=== PATIENT | female | born 1975 | race African-American/Black ===

== ENCOUNTER 2016-05-30 09:51 | Observation (INO) ==
[2016-05-30] MEDS ORDERED: SODIUM CHLORIDE 0.9% 1,000 ML IV STA (11:10)
[2016-05-30] MEDS ORDERED: ONDANSETRON 4 MG/2 ML VIAL IV STA (11:10)
--- NOTE | 2016-05-30 11:14 | EKG Report ---
Stationary ECG Study [facility] ER Test Date: 05/30/2016 10:09:04 AM Pat Name: ELSA PARRY Department: Room: Gender: F Rotary Helper: Walt Conley : 1975 Requested by: Nash Hoover Order Number: [id number] Reading MD: MANNY BARRERA Intervals [place] Rate: 86 P: 999 DE: 0 QRS: 65 QRSD: 86 T: 5 QT: 435 QTc: 478 Interpretive Statements ATRIAL FIBRILLATION NONSPECIFIC T WAVE ABNORMALITY, PROBABLY DIGITALIS EFFECT LONG QT INTERVAL Electronically Signed On 05-31-16 21:53:39 ADMINISTRATION DEAN by MANNY BARRERA [email or web address]
--- NOTE | 2016-05-30 11:33 | XRay Report ---
Exam: XR chest 1V portable Date: 05/30/2016 11:11 AM Indication: Chest pain Comparison: 12/08/2015 Technical:AP portable Findings: Mild cardiac enlargement is present. No obvious infiltrate or effusion. Mediastinal and bony structures are otherwise intact. External cardiac leads are present. Impression: 1. Borderline cardiac enlargement without decompensation PROCEDURE INTERPRETED AT [facility] DEPARTMENT OF RADIOLOGY Final Report Signed by: Dr. Valentin Murray
[2016-05-30] MEDS ORDERED: ONDANSETRON 4 MG/2 ML VIAL ONE (11:42)
[2016-05-30 11:44] LABS: Basophils # 0.1 10*3/uL (0.0-0.2); Basophils % 1.1 % (0.0-0.8); Eosinophils % 0.1 % (0.00-10.9); Hematocrit 39.8 VOL% (35.7-47.0); Hemoglobin 13.7 GM/DL (12.0-16.0); Immature Granulocytes % 0.1 %; Immature Granulocytes Absolute 0.01 #; Lymphocytes # 2.1 10*3/uL (1.4-4.0); Lymphocytes % 22.6 % (21.3-54.2); Mean Corpuscular HGB Conc 34.4 GM/DL (32-36); Mean Corpuscular Hemoglobin 32 PG (27-34); Mean Corpuscular Volume 92.1 FL (87-102); Monocytes # 0.8 10*3/uL (0.11-0.8); Monocytes % 8.5 % (1.7-12.7); Neutrophils # 6.3 10*3/uL (1.4-7.4); Neutrophils % 67.6 % (38.7-73.9); Platelet Count 258 10*3/uL (130-400); Red Blood Count 4.32 10*6/uL (3.8-5.5); Red Cell Distribution Width 12.7 % (9.3-17.3); White Blood Count 9.3 10*3/uL (4.5-13.71)
[2016-05-30 11:50] LABS: Apearance,Urine CLEAR (Clear); Bilirubin,Urine Negative (Negative); Blood, Urine Moderate mg/dL (Negative); Glucose,Urine (UA) Negative (Negative); Ketones,Urine 20 mg/dL (Negative); Mucus,Urine Occasional /LPF (Occasional); Nitrite,Urine Negative (Negative); Protein,Urine 30 MG/DL; RBC,Urine 1 /HPF (0-4); Squamous Epithelial Cell,Urine Occasional /HPF (0-10); Urine Color Straw (Yellow); Urine Specific Gravity 1.004 (1.001-1.035); Urine Urobilinogen < 2.0 EU/DL (0.2-1.0); WBC,Urine <1 /HPF (0-6)
[2016-05-30 11:57] LABS: Barbiturates Screen,Urine Negative (Negative); Benzodiazepines Screen,Urine Negative (Negative); Cannabinoid Screen,Urine Positive (Negative); Opiate Screen,Urine Negative (Negative); Phencyclidine Screen,Urine Negative (Negative)
[2016-05-30 12:16] LABS: Albumin 4.2 G/DL (3.4-5.0); Bilirubin,Total 0.9 MG/DL (0.2-1.0); Osmolality,Calculated 273.5 MOS/KG (273-304); Potassium 3.8 MMOL/L (3.5-5.1); Total Protein 8.5 G/DL (6.4-8.3)
--- NOTE | 2016-05-30 13:54 | Emergency Department Note ---
Feng Delacruz Brittany, am scribing for, and in the presence of, Nash Hoover Jr., MD 11:14. Sneha Delacruz Marvin Jr., MD, personally performed the services described in this documentation, ascribed by Nnacy Toney in my presence, and it is both accurate and complete [id number] . Arrival - Arrival Chief Complaint: Non-Specific Stated Complaint: CHEST PAIN ED Nursing Triage Note: C/O HAVING CHEST PAIN X 2 HOURS., + SOB, EKG DONE IN TRIAGE- AFTER GETTING EKG DONE PATIENT THEN COMPLAINS OF + SORE THROAT., + TIGHTNESS IN CHEST, + CHILLS, POOR HISTORIAN , + COUGHING, Mode of Arrival: Wheelchair Limitations: No Limitations Source: Patient, RN Notes Reviewed - History of Present Illness HPI Narrative: Patient is a 41 y/o black female presenting to the ED with c/o chest pain that onset this morning. Patient describes chest pain as "feels like something sharp coming and going lasting only a few seconds at a time." Patient reports that nothing makes pain better or worse. Patient notes that she has also been having a sore throat and headache. Patient reports that she's had some nausea and vomited about 3 times this morning. Patient describes vomit as clear and yellow in color. Patient notes that she has been taking Clonidine as prescribed for blood pressure. Patient is a current everyday smoker, but denies use of alcohol or recreational drugs. No other complaint/pain in the ED. Date of Last Menstrual Period: 1 WEEK AGO Allergies/Adverse Reactions: Allergies Allergy/AdvReac Type Severity Reaction Status Date / Time No Known Allergies Allergy Verified 05/30/16 10:12 Home Medications: Home Medications Medication Instructions Recorded Confirmed Type Cetirizine Tab [ZyrTEC TAB] 10 mg PO DAILY 09/10/14 05/30/16 History Alprazolam [Xanax] 1 mg PO PRN PRN #20 tablet 09/09/15 05/30/16 Rx Lisinopril/Hydrochlorothiazide 1 each PO DAILY #30 tablet 09/09/15 05/30/16 Rx [Lisinopril-Hctz 20-25 mg Tab] Potassium Chloride 20 meq PO DAILY #30 tablet.er 09/09/15 05/30/16 Rx amLODIPine [Norvasc] 10 mg PO DAILY #30 tablet 09/09/15 05/30/16 Rx cloNIDine TAB [Catapres Tab] 0.2 mg PO BID #60 tablet 09/09/15 05/30/16 Rx Diclofenac Potassium Tab [Cataflam] 50 mg PO BID #10 tablet 12/08/15 05/30/16 Rx Review of System - Review of System 12 point system: reviewed and no additional remarkable complaints except as stated - Review of System Constitutional: Absent: fever Head/Ears/Nose/Throat: Present: sore throat Cardiovascular: Present: chest pain Gastrointestinal: Present: nausea, vomiting Neurological: Present: headache Medical,Surgical,& Family Hx - Medical History Cardio: History of: Hypertension Psychological: History of: Anxiety Disorders - Surgical History Reproductive Surgeries: Surgical HX of;: Section, Tubal Ligation - Social History Smoking Status: Smoker, status unknown Frequency of Alcohol Use: Occasionally Type of Drug Use: Marijuana Exam Physical Examination: General: Well-developed well-nourished, no apparent distress. Head: Normocephalic, atraumatic. Eyes: PERRLA, EOMI. Nose: No obvious acute deformities or discharge. Mouth: No obvious acute injury. Mucous membranes are a little dry, no intraoral swelling is noticed Neck: Full range of motion without obvious pain. No midline tender to palpation. Lymphatic: no significant lymphadenopathy noted. Lungs: Clear to auscultation bilaterally, normal and equal air movement bilaterally, no obvious rales or wheezing. Heart: regular rate and rhythm, no obvious mummers. Chest wall, palpation reproduces her pain, no crepitance or lesions noted Abdomen: Soft nontender, nondistended, normal active bowel sounds. Skin: No obivous acute lesions noted Musculoskeletal: No gross deformities. Neurological: No focal findings, cranial nerves II through XII grossly normal. Psychiatric: Appropriate mood.. : Deferred Vital Signs: Vital Signs Temperature 98.4 F 05/30/16 10:03 Pulse Rate 71 05/30/16 11:07 Respiratory Rate 20 05/30/16 10:03 Blood Pressure 152/107 05/30/16 11:07 O2 Sat by Pulse Oximetry 100 05/30/16 11:07 Course Course Narrative: Differential diagnosis: Upper respiratory infection pharyngitis, chest wall pain , bronchitis - Reevaluation(s) Reevaluation #1: Discussed with the nurse practitioner from the hospitalist service and they accept patient and will come to the ER and write the orders. Time: 13:52 Results - Labs CBC & BMP: 05/30/16 11:14 05/30/16 11:14 Lab Results: I have reviewed the patients labs Labs: Laboratory Tests 05/30/16 05/30/16 05/30/16 11:14 11:14 11:14 WBC 9.3 RBC 4.32 Hgb 13.7 Hct 39.8 MCV 92.1 MCH 32 MCHC 34.4 RDW 12.7 Plt Count 258 MPV 10.0 Neut % (Auto) 67.6 Lymph % (Auto) 22.6 Eddy % (Auto) 8.5 Eos % (Auto) 0.1 Baso % (Auto) 1.1 H Neut # (Auto) 6.3 Lymph # (Auto) 2.1 Eddy # (Auto) 0.8 Eos # (Auto) 0.0 Baso # (Auto) 0.1 Immature Gran % 0.1 Nucleated RBC % 0.0 Immature Gran # 0.01 Nucleated RBCs # 0.00 Urine Color Straw Urine Appearance Clear Urine pH 7.0 Ur Specific [place] 1.004 Urine Protein 30 Urine Glucose (UA) Negative Urine Ketones 20 Urine Blood Moderate Urine Nitrate Negative Urine Bilirubin Negative Urine Urobilinogen < 2.0 H Urine Leukocytes Negative Urine RBC 1 Urine WBC <1 Ur Squamous Epith Cells Occasional Urine Mucus Occasional Urine Test Negative Urine Opiates Screen Negative Ur Barbiturates Screen Negative Ur Phencyclidine Scrn Negative U Amphetamine/Methamph Negative U Benzodiazepines Scrn Negative U Cocaine Metab Screen Negative U Cannabinoids Screen Positive H Laboratory Tests 05/30/16 05/30/16 11:14 11:14 Sodium 139 Potassium 3.8 Chloride 103 Carbon Dioxide 23 Anion Gap 16.8 H BUN 7 Creatinine 0.50 L GFR Calculation 0 BUN/Creatinine Ratio 14.00 Glucose 80 Calculated Osmolality 273.5 Calcium 9.0 Total Bilirubin 0.90 AST 176 H ALT 73 H Alkaline Phosphatase 97 Troponin I 0.047 H Total Protein 8.5 H Albumin 4.2 Globulin 4.3 H Albumin/Globulin Ratio 0.9 L Microbiology 05/30/16 11:14 Throat Group A Streptococcus Rapid Screen - Final Negative for Grp A Strep Ag - EKG EKG results: interpreted by ERMD (heart rate 86, irregular heartbeat, computer read out as A. fib but in several leads I see P waves. I think this is over interpreting by the EKG machine. Narrow complex QRS complexes without obvious acute ST changes.) - Diagnostic Findings Procedure: Chest x-ray: report reviewed by me, image reviewed by me (Borderline cardiomegaly enlargement without decompensation. I personally reviewed this chest x-ray) Disposition Clinical Impression: Chest pain, Elevated troponin, Elevated liver enzymes, Marijuana use, Sore throat, Vomiting, elevated blood pressure Case discussed with: patient, patient's family Disposition: Still a Patient Condition: Stable Time of Disposition: 13:53
[2016-05-30] MEDS ORDERED: MORPHINE 2 MG/1 ML SYRINGE IV STA (13:56)
[2016-05-30] MEDS ORDERED: MORPHINE 2 MG/1 ML SYRINGE ONE (13:58)
[2016-05-30] MEDS ORDERED: MORPHINE 2 MG/1 ML SYRINGE IV PRN (14:35)
[2016-05-30] MEDS ORDERED: ACETAMINOPHEN 325 MG TABLET PO PRN (14:35)
[2016-05-30] MEDS ORDERED: LACTULOSE 20 GM/30 ML UDCUP PO PRN (14:35)
[2016-05-30] MEDS ORDERED: ONDANSETRON 4 MG/2 ML VIAL IV PRN (14:35)
[2016-05-30 15:54] LABS: Risk Ratio 2.27; VLDL CHOLESTEROL 29.8 MG/DL
--- NOTE | 2016-05-30 16:16 | Hospitalist History & Physical ---
Assessment and Plan - Time spent with patient Time spent with patient: Greater than 30 minutes (1) Chest pain Status: Acute Assessment and plan: we will admit to telemetry and do serial EKG and troponin lipid panel and MG Her liver enzymes were elevated on ER labs, liver US ordered will recheck in AM Hepatitis panel flu and strep are negative, she presents like a viral syndrome, we will hydrate , keep fever managed Pt is supposed to be taking clonidine at home, we will start with that to treat her HTN and resume on discharge PRN meds, DVT prophylaxis routine labs in AM further plan and addendum to follow per DR. Maloney Current Visit: Yes (2) Elevated liver enzymes Status: Acute Current Visit: Yes (3) Sore throat Status: Acute Current Visit: Yes History of Present Illness Chief complaint: weakness, body aches, chest pain History of present illness: Ms. Choe is a 41 year old female who presents to the ER today with sore throat, chills, body aches, congestion, and chest pain. Her chest pain is on the right and left side above her breast, it is reproducible and does not radiate. She states she has had some "regurgitation" but no vomiting or diarrhea. She has complained of a headache to nursing staff but denies it to me. She has quiet raspy speech and says her throat hurts to talk. Throat is red , with no exudate. She is found to have a mildly elevated troponin on ER labs. She is also quite hypertensive but has been out of her home meds. PMH includes HTN, PSH of . smokes about a pack of cigarettes a day and occasionally drinks and smokes marijuana. Home Medications Medication Instructions Recorded Confirmed Type Cetirizine Tab [ZyrTEC TAB] 10 mg PO DAILY 09/10/14 05/30/16 History Alprazolam [Xanax] 1 mg PO PRN PRN #20 tablet 09/09/15 05/30/16 Rx Lisinopril/Hydrochlorothiazide 1 each PO DAILY #30 tablet 09/09/15 05/30/16 Rx [Lisinopril-Hctz 20-25 mg Tab] Potassium Chloride 20 meq PO DAILY #30 tablet.er 09/09/15 05/30/16 Rx amLODIPine [Norvasc] 10 mg PO DAILY #30 tablet 09/09/15 05/30/16 Rx cloNIDine TAB [Catapres Tab] 0.2 mg PO BID #60 tablet 09/09/15 05/30/16 Rx Diclofenac Potassium Tab [Cataflam] 50 mg PO BID #10 tablet 12/08/15 05/30/16 Rx Allergies Allergy/AdvReac Type Severity Reaction Status Date / Time No Known Allergies Allergy Verified 05/30/16 10:12 Medical,Surgical,& Family Hx - Medical History Cardio: History of: Hypertension Psychological: History of: Anxiety Disorders - Surgical History Reproductive Surgeries: Surgical HX of;: Section, Tubal Ligation - Social History Smoking Status: Smoker, status unknown Frequency of Alcohol Use: Occasionally Type of Drug Use: Marijuana 12 point system: reviewed and no additional remarkable complaints except as stated Exam - Constitutional Vitals: Period Temp Pulse Resp BP Sys/Nj Pulse Ox Last 24 Hr 68-78 22 142-176/96-111 100-100 General appearance: no acute distress - Head Head exam: Present: normal inspection, normocephalic - Eye Eye exam: Present: EOMI. Absent: scleral icterus Pupils: Present: KARLENE, normal accommodation - ENT ENT exam: Present: normal exam. Absent: normal oropharynx (posterior pharynx red and irritated) - Neck Neck exam: Present: normal inspection. Absent: lymphadenopathy - Respiratory Respiratory exam: Present: clear to auscultation bilaterally. Absent: wheezes - Cardiovascular Cardiovascular exam: Present: regular rate and rhythm, other (reproducible chest pain on right and left). Absent: tachycardia - GI/Abdominal GI/Abdominal exam: Present: normal bowel sounds, soft. Absent: tenderness - Extremities Exam Extremities exam: Present: normal inspection, full ROM. Absent: edema - Back Exam Back exam: Present: normal inspection. Absent: muscle spasm - Neurological Exam Neurological exam: Present: alert, oriented X3 - Psychiatric Psychiatric exam: Present: normal affect, normal mood - Skin Skin exam: Present: normal color, warm, dry Results - Labs CBC & BMP: 05/30/16 11:14 05/30/16 11:14 Lab Results: I have reviewed the past 24 hour labs
[2016-05-30] MEDS ORDERED: SODIUM CHLORIDE 0.9% 1,000 ML IV SCH (16:30)
[2016-05-30] MEDS ORDERED: INFLUENZA VIRUS VACCINE 0.5 ML SYRINGE IM ONE (16:46)
[2016-05-30] MEDS ORDERED: PNEUMOCOCCAL VACCINE (13 VALENT) 0.5 ML SYRINGE IM ONE (16:46)
--- NOTE | 2016-05-30 17:12 | Ultrasound Report ---
US liver Indication: Abdominal pain. Elevated LFTs. ULTRASOUND ABDOMEN, limited Comparison: None Findings: Liver: Diffusely echogenic. Normal size. Smooth contour without focal lesion. Gallbladder: Unremarkable Common bile duct: 2 mm Pancreas: Partially obscured by bowel gas. Visualized portions are unremarkable. Right kidney: 12.8 cm length. No mass, cyst, calcification or obstruction Impression: Echogenic liver, likely hepatic steatosis. Otherwise negative exam. PROCEDURE INTERPRETED AT [facility] DEPARTMENT OF RADIOLOGY Final Report Signed by: Keyshawn Pires M.D.
[2016-05-30] MEDS ORDERED: KETOROLAC 30 MG/1 ML VIAL IV ONE (18:10)
[2016-05-30] MEDS ORDERED: PHENOL 1.4% THROAT SPRAY 177 ML BOTTLE PO PRN (18:11)
[2016-05-30] MEDS ORDERED: AZITHROMYCIN INJ 500 MG in SODIUM CHLORIDE 0.9% 250 ML IV SCH (18:30)
[2016-05-30] MEDS: SODIUM CHLORIDE 0.45% 1,000 ML IV SCH (18:46)
[2016-05-30 20:12] LABS: Hepatitis A Ab IgM Quant 0.06 Index; Hepatitis A Ab IgM Result Negative (Negative); Hepatitis B Core IgM Quant 0.16 Index; Hepatitis B Core IgM Result Negative (Negative); Hepatitis B Surface Ag Quant < 0.10 Index; Hepatitis B Surface Ag Result Negative (Negative); Hepatitis C Virus Ab Result Negative (Negative)
[2016-05-30] MEDS: DICLOFENAC POTASSIUM 50 MG TABLET PO SCH (21:20)
[2016-05-30] MEDS: ALPRAZolam 0.5 MG TABLET PO PRN (21:20)
--- NOTE | 2016-05-31 00:25 | EKG Report ---
Stationary ECG Study [facility] Test Date: 05/31/2016 12:18:36 AM Pat Name: ELSA PARRY Department: Room: 280 Gender: F Overlock Operator: NEHA : 1975 Requested by: Jacquie Sun Order Number: [id number] Gerardo MD: MANNY BARRERA Intervals [place] Rate: 49 P: 26 LA: 172 QRS: 48 QRSD: 98 T: 26 QT: 541 QTc: 513 Interpretive Statements SINUS BRADYCARDIA WITH SINUS ARRHYTHMIA PROLONGED QT INTERVAL Electronically Signed On 05-31-16 21:56:55 HOT MILL SUPERVISOR by MANNY BARRERA [email or web address]
[2016-05-31] MEDS ORDERED: NIFEdipine 10 MG CAPSULE PO PRN (00:33)
[2016-05-31] MEDS: SODIUM CHLORIDE 0.45% 1,000 ML IV SCH ×2 (04:45→13:40)
[2016-05-31 06:30] LABS: Basophils # 0.1 10*3/uL (0.0-0.2); Basophils % 0.6 % (0.0-0.8); Eosinophils # 0.2 10*3/uL (0.0-0.87); Eosinophils % 2.2 % (0.00-10.9); Hematocrit 36.3 VOL% (35.7-47.0); Hemoglobin 12.6 GM/DL (12.0-16.0); Immature Granulocytes % 0.1 %; Immature Granulocytes Absolute 0.01 #; Lymphocytes % 39.1 % (21.3-54.2); Mean Corpuscular HGB Conc 34.7 GM/DL (32-36); Mean Corpuscular Hemoglobin 32 PG (27-34); Mean Corpuscular Volume 91.7 FL (87-102); Mean Platelet Volume 10.5 FL (9.6-12.0); Monocytes # 0.8 10*3/uL (0.11-0.8); Monocytes % 10.5 % (1.7-12.7); Neutrophils # 3.7 10*3/uL (1.4-7.4); Neutrophils % 47.5 % (38.7-73.9); Platelet Count 234 10*3/uL (130-400); Red Blood Count 3.96 10*6/uL (3.8-5.5); Red Cell Distribution Width 12.2 % (9.3-17.3); White Blood Count 7.8 10*3/uL (4.5-13.71)
[2016-05-31 07:04] LABS: Albumin 3.4 G/DL (3.4-5.0); Bilirubin,Direct 0.2 MG/DL (0.0-0.20); Bilirubin,Indirect 0.8 MG/DL (0.0-1.0); Total Protein 7.2 G/DL (6.4-8.3)
[2016-05-31 07:06] LABS: Albumin 3.3 G/DL (3.4-5.0); Calcium 8.7 MG/DL (8.5-10.1); Osmolality,Calculated 269.8 MOS/KG (273-304); Potassium 3.8 MMOL/L (3.5-5.1); Total Protein 7.3 G/DL (6.4-8.3)
[2016-05-31] MEDS ORDERED: amLODIPine 10 MG TABLET PO SCH (09:00)
[2016-05-31] MEDS ORDERED: LISINOPRIL/HCTZ 20-25 MG TABLET PO SCH (09:00)
[2016-05-31] MEDS ORDERED: CETIRIZINE 10 MG TABLET PO SCH (09:00)
[2016-05-31] MEDS ORDERED: PANTOPRAZOLE 40 MG TABLET PO SCH (09:00)
[2016-05-31] MEDS ORDERED: POTASSIUM CHLORIDE 20 MEQ TABLET PO SCH (09:00)
[2016-05-31] MEDS: ALPRAZolam 0.5 MG TABLET PO PRN (09:54)
[2016-05-31] MEDS: DICLOFENAC POTASSIUM 50 MG TABLET PO SCH (09:56)
--- NOTE | 2016-05-31 10:13 | EKG Report ---
Stationary ECG Study [facility] ER Test Date: 05/30/2016 4:07:37 PM Pat Name: ELSA PARRY Department: Room: 280 Gender: F Machine Repair Person: : 1975 Requested by: Boyd Maloney Order Number: [id number] Reading MD: MANNY BARRERA Intervals [place] Rate: 59 P: 20 FL: 173 QRS: 51 QRSD: 90 T: 33 QT: 421 QTc: 421 Interpretive Statements SINUS RHYTHM WITH MARKED SINUS ARRHYTHMIA NONSPECIFIC T-WAVE ABNORMALITY Electronically Signed On 05-31-16 21:55:01 SPANISH TEACHER by MANNY BARRERA [id number]
--- NOTE | 2016-05-31 14:53 | Discharge Summary ---
Hospital Course - Hospital Course Hospital Course: This hospitalization included patient admitted for shortness of breath nonspecific chest pain and febrile illness. She had history of sick contacts. And was subtotally started on empiric antibiotic therapy. She's been afebrile her vital signs have been acceptable. She does give a history of not taking her antihypertensive medicines because she has been out. Those medicines have been restarted. She had slight increase in her liver enzymes that has continued to trend down. At this time no acute changes. She is prepared for discharge. - Time spent with patient Time with patient DS: Greater than 30 minutes Diagnosis - Discharge Diagnosis (1) Chest pain Status: Resolved (2) Marijuana use Status: Chronic (3) Sore throat Status: Resolved Specialty Discharge - Follow Up or Referrals Discharge Plan - Discharge Data Disposition: Disch To Home/Self Care Condition at Discharge: Stable Discharge Diet: advance to your usual diet Activity: resume usual activities as tolerated Contact your physician if you experience:: fever over 101 - Discharge Medications New ALPRAZolam [Xanax] 1 mg PO PRN PRN #25 tablet PRN Reason: Anxiety Azithromycin Tab [Zithromax Tab] 250 mg PO DAILY #4 tablet Ranitidine Tab [Zantac Tab] 150 mg PO BID #60 tablet Continue Potassium Chloride 20 meq PO DAILY #30 tablet.er Cetirizine Tab [ZyrTEC Tab] 10 mg PO DAILY #30 tablet Diclofenac Potassium Tab [Cataflam] 50 mg PO BID #10 tablet Lisinopril/Hydrochlorothiazide [Lisinopril-Hctz 20-25 mg Tab] 1 each PO DAILY #30 tablet amLODIPine [Norvasc] 10 mg PO DAILY #30 tablet cloNIDine TAB [Catapres Tab] 0.2 mg PO BID #60 tablet Discontinued Alprazolam [Xanax] 1 mg PO PRN PRN #20 tablet PRN Reason: Anxiety - Follow Up or Referral - Forms/Instructions Instructions: Chest Pain (GEN) Additional Discharge Instructions: Follow-up with primary provider Dr. Douglas on next week. Exam - Constitutional Vitals: Period Temp Pulse Resp BP Sys/Nj Pulse Ox Last 24 Hr 96.7 F-98.1 F 59-79 18-22 128-184/74-111 98-100 General appearance: normal weight - Head Head exam: Present: normal inspection - ENT ENT exam: Present: normal exam - Respiratory Respiratory exam: Present: clear to auscultation bilaterally - Cardiovascular Cardiovascular exam: Present: regular rate and rhythm - GI/Abdominal GI/Abdominal exam: Present: normal bowel sounds - Neurological Exam Neurological exam: Present: alert, oriented X3, CN II-XII intact - Psychiatric Psychiatric exam: Present: normal affect, normal mood Discharge Results Labs on day of discharge: Labs from last 24 hours 05/31/16 05/31/16 05/31/16 06:06 06:06 06:06 WBC 7.8 RBC 3.96 Hgb 12.6 Hct 36.3 MCV 91.7 MCH 32 MCHC 34.7 RDW 12.2 Plt Count 234 MPV 10.5 Neut % (Auto) 47.5 Lymph % (Auto) 39.1 Payne % (Auto) 10.5 Eos % (Auto) 2.2 Baso % (Auto) 0.6 Neut # (Auto) 3.7 Lymph # (Auto) 3.0 Payne # (Auto) 0.8 Eos # (Auto) 0.2 Baso # (Auto) 0.1 Immature Gran % 0.1 Nucleated RBC % 0.0 Immature Gran # 0.01 Nucleated RBCs # 0.00 Sodium 137 Potassium 3.8 Chloride 100 Carbon Dioxide 27 Anion Gap 13.8 BUN 6 L Creatinine 0.50 L GFR Calculation 152 BUN/Creatinine Ratio 12.00 Glucose 84 Calculated Osmolality 269.8 L Calcium 8.7 Magnesium Total Bilirubin 1.00 Direct Bilirubin Indirect Bilirubin AST 84 H ALT 53 Alkaline Phosphatase 78 Troponin I 0.047 H Total Protein 7.3 Albumin 3.3 L Globulin 4.0 H Albumin/Globulin Ratio 0.8 L Hepatitis A IgM Ab Hep Bs Antigen Hep B Core IgM Ab Hepatitis C Antibody 05/31/16 05/30/16 05/30/16 06:06 23:26 18:25 WBC RBC Hgb Hct MCV MCH MCHC RDW Plt Count MPV Neut % (Auto) Lymph % (Auto) Payne % (Auto) Eos % (Auto) Baso % (Auto) Neut # (Auto) Lymph # (Auto) Payne # (Auto) Eos # (Auto) Baso # (Auto) Immature Gran % Nucleated RBC % Immature Gran # Nucleated RBCs # Sodium Potassium Chloride Carbon Dioxide Anion Gap BUN Creatinine GFR Calculation BUN/Creatinine Ratio Glucose Calculated Osmolality Calcium Magnesium 1.7 L Total Bilirubin 1.00 Direct Bilirubin 0.2 Indirect Bilirubin 0.8 AST 84 H ALT 53 Alkaline Phosphatase 77 Troponin I 0.044 Total Protein 7.2 Albumin 3.4 Globulin Albumin/Globulin Ratio Hepatitis A IgM Ab Hep Bs Antigen Hep B Core IgM Ab Hepatitis C Antibody 05/30/16 05/30/16 18:25 16:10 WBC RBC Hgb Hct MCV MCH MCHC RDW Plt Count MPV Neut % (Auto) Lymph % (Auto) Payne % (Auto) Eos % (Auto) Baso % (Auto) Neut # (Auto) Lymph # (Auto) Payne # (Auto) Eos # (Auto) Baso # (Auto) Immature Gran % Nucleated RBC % Immature Gran # Nucleated RBCs # Sodium Potassium Chloride Carbon Dioxide Anion Gap BUN Creatinine GFR Calculation BUN/Creatinine Ratio Glucose Calculated Osmolality Calcium Magnesium Total Bilirubin Direct Bilirubin Indirect Bilirubin AST ALT Alkaline Phosphatase Troponin I 0.041 Total Protein Albumin Globulin Albumin/Globulin Ratio Hepatitis A IgM Ab Negative Hep Bs Antigen Negative Hep B Core IgM Ab Negative Hepatitis C Antibody Negative DS: Provider Date of admission: 05/30/16 14:35 Primary care physician: . No PCP Attending physician on admission: Boyd Maloney Jr., MD Consults: 05/30/16 14:43 Consult to Pharmacy [CONS] Routine Reason for Pharmacy Consult: Adjust Meds Renal Funct 05/30/16 16:46 Consult to Dietitian [CONS] Routine Reason for Dietitian: Dietary Consult Discharging clinician: Boyd Maloney Jr., MD
[2016-05-31 17:33] VITALS: BP 134/82
== END 2016-05-31 17:32 | disposition home or self-care (01) ==
LOC: N.EDINP 09:51 → N.ED 09:51 → N.TELEN 15:22
PROVIDERS: ADMIT Internal Medicine Nephrology; ATTEND Internal Medicine Nephrology

== ENCOUNTER 2017-10-14 08:39 | Observation (INO) ==
[2017-10-14 11:20] LABS: Basophils # 0.1 10*3/uL (0.0-0.2); Eosinophils # 0.1 10*3/uL (0.0-0.87); Eosinophils % 1.1 % (0.00-10.9); Hematocrit 40.7 VOL% (35.7-47.0); Hemoglobin 14.6 GM/DL (12.0-16.0); Immature Granulocytes % 0.2 %; Immature Granulocytes Absolute 0.02 #; Lymphocytes # 3.2 10*3/uL (1.4-4.0); Mean Corpuscular HGB Conc 35.9 GM/DL (32-36); Mean Corpuscular Hemoglobin 33 PG (27-34); Mean Corpuscular Volume 91.1 FL (87-102); Mean Platelet Volume 12.8 FL (9.6-12.0); Monocytes # 0.9 10*3/uL (0.11-0.8); Monocytes % 10.5 % (1.7-12.7); Neutrophils # 4.1 10*3/uL (1.4-7.4); Neutrophils % 49.2 % (38.7-73.9); Platelet Count 257 T/CUMM (130-400); Red Blood Count 4.47 MC/CUMM (3.8-5.5); Red Cell Distribution Width 13.4 % (9.3-17.3); White Blood Count 8.3 T/CUMM (4-12)
[2017-10-14] MEDS ORDERED: ASPIRIN 325 MG TABLET PO STA (11:30)
[2017-10-14] MEDS ORDERED: LORazepam 2 MG/1 ML VIAL IV STA (11:35)
[2017-10-14] MEDS ORDERED: ONDANSETRON 4 MG/2 ML VIAL IV STA (11:36)
[2017-10-14] MEDS ORDERED: MORPHINE 4 MG/1 ML VIAL IV STA (11:36)
[2017-10-14 11:52] LABS: INR 1.1; PT Patient Result 11.3 SECS
[2017-10-14 12:16] LABS: Albumin 4.1 G/DL (3.4-5.0); Bilirubin,Total 0.6 MG/DL (0.2-1.0); Calcium 8.9 MG/DL (8.5-10.1); Osmolality,Calculated 274.5 MOS/KG (273-304); Potassium 3.1 MMOL/L (3.5-5.1)
[2017-10-14 13:30] LABS: Apearance,Urine CLEAR (Clear); Bilirubin,Urine Negative (Negative); Blood, Urine Small mg/dL (Negative); Glucose,Urine (UA) Negative (Negative); Hyaline Casts,Urine 4 /LPF (0-3); Ketones,Urine 5 mg/dL (Negative); Mucus,Urine Few /LPF (Occasional); Nitrite,Urine Negative (Negative); Protein,Urine 30 MG/DL; RBC,Urine 4 /HPF (0-4); Squamous Epithelial Cell,Urine Occasional /HPF (0-10); Urine Color Yellow (Yellow); Urine Specific Gravity 1.016 (1.001-1.035); Urine Urobilinogen < 2.0 EU/DL (0.2-1.0); WBC,Urine <1 /HPF (0-6)
[2017-10-14] MEDS ORDERED: hydrALAZINE 20 MG/1 ML VIAL IV STA (14:02)
[2017-10-14] MEDS ORDERED: ONDANSETRON 4 MG/2 ML VIAL IV PRN (14:40)
[2017-10-14] MEDS ORDERED: POTASSIUM CHLORIDE 20 MEQ TABLET PO ONE (14:49)
[2017-10-14] MEDS ORDERED: hydrALAZINE 20 MG/1 ML VIAL IV PRN (14:54)
[2017-10-14] MEDS ORDERED: ENOXAPARIN 40 MG/0.4 ML SYRINGE SUBCUT SCH (21:00)
[2017-10-14] MEDS ORDERED: ZALEPLON 5 MG CAPSULE PO PRN (22:10)
[2017-10-14] MEDS: amLODIPine 10 MG TABLET PO SCH (22:52)
[2017-10-15 05:49] LABS: Basophils # 0.1 10*3/uL (0.0-0.2); Basophils % 0.8 % (0.0-0.8); Eosinophils # 0.2 10*3/uL (0.0-0.87); Eosinophils % 2.6 % (0.00-10.9); Hematocrit 38.1 VOL% (35.7-47.0); Hemoglobin 13.1 GM/DL (12.0-16.0); Immature Granulocytes % 0.2 %; Immature Granulocytes Absolute 0.02 #; Lymphocytes % 35.1 % (21.3-54.2); Mean Corpuscular HGB Conc 34.4 GM/DL (32-36); Mean Corpuscular Hemoglobin 32 PG (27-34); Mean Corpuscular Volume 94.1 FL (87-102); Mean Platelet Volume 10.9 FL (9.6-12.0); Monocytes # 0.9 10*3/uL (0.11-0.8); Monocytes % 10.5 % (1.7-12.7); Neutrophils # 4.3 10*3/uL (1.4-7.4); Neutrophils % 50.8 % (38.7-73.9); Platelet Count 180 T/CUMM (130-400); Red Blood Count 4.05 MC/CUMM (3.8-5.5); Red Cell Distribution Width 13.2 % (9.3-17.3); White Blood Count 8.5 T/CUMM (4-12)
[2017-10-15 06:16] LABS: Calcium 8.4 MG/DL (8.5-10.1); Osmolality,Calculated 267.1 MOS/KG (273-304); Potassium 3.1 MMOL/L (3.5-5.1)
[2017-10-15 06:21] LABS: Albumin 3.5 G/DL (3.4-5.0); Bilirubin,Direct 0.11 MG/DL (0.0-0.20); Bilirubin,Indirect 0.4 MG/DL (0.0-1.0); Bilirubin,Total 0.5 MG/DL (0.2-1.0); Risk Ratio 3.88; Total Protein 7.1 G/DL (6.4-8.3); VLDL CHOLESTEROL 54.8 MG/DL
[2017-10-15] MEDS ORDERED: POTASSIUM CHLORIDE 20 MEQ TABLET PO ONE (07:51)
[2017-10-15] MEDS ORDERED: POTASSIUM CHLORIDE RIDER 10 MEQ in PREMIX 1 EACH IV PRN (08:05)
[2017-10-15] MEDS ORDERED: PANTOPRAZOLE 40 MG TABLET PO SCH (09:00)
[2017-10-15] MEDS: amLODIPine 10 MG TABLET PO SCH (09:10)
[2017-10-15] MEDS ORDERED: LISINOPRIL 10 MG TABLET PO SCH (09:30)
[2017-10-15] MEDS ORDERED: NICOTINE 14 MG/24 HR PATCH TRANSDERM SCH (09:30)
[2017-10-15 12:07] VITALS: BP 140/95
[2017-10-16] MEDS ORDERED: amLODIPine 10 MG TABLET PO SCH (09:00)
== END 2017-10-15 13:19 | disposition home or self-care (01) ==
LOC: N.ED 08:39 → N.EDINP 08:39 → N.TELES 17:42